=== PATIENT | male | born 1995 | race Caucasian/White ===

== ENCOUNTER 2017-01-25 04:08 | Emergency (ER) | payer MEDICAID ==
[2017-01-25] MEDS ORDERED: ALBUTEROL SULFATE 2.5 MG/3 ML VIAL.NEB IH ONE ×2 (04:34)
[2017-01-25] MEDS ORDERED: predniSONE 20 MG TABLET PO ONE (04:35)
[2017-01-25] MEDS ORDERED: ALBUTEROL SULFATE 2.5 MG/0.5 ML VIAL.NEB IH ONE (04:37)
[2017-01-25] MEDS ORDERED: predniSONE 20 MG TABLET ONE (04:41)
--- NOTE | 2017-01-25 04:42 | ERNOTE ---
Dyspnea - Date Date of Service: 01/25/17 - General Time Seen by Provider: 01/25/17 04:33 Source: patient, RN notes reviewed - Immun/Allergies/Home Medications Immunizations: IMMUNIZATION HX Immunizations Up to Date Yes Allergies/Adverse Reactions: Allergies azithromycin [From Zithromax] Allergy (Verified 01/25/17 04:20) Home Medications: HOME MEDICATIONS Albuterol Sulfate [Proventil Hfa] 6.7 gm IH QID #1 hfa.aer.ad 01/25/17 [Last Taken Unknown] predniSONE [Prednisone] See Taper PO DAILY #20 tablet 01/25/17 [Last Taken Unknown] - History of Present Illness Narrative: 21-year-old male established patient of Dr. Ross presents with increased shortness of breath and mild respiratory symptoms. Patient started having allergy symptoms and wheezing tonight where he could hardly breath. He took about 75 mg benadryl and prednisone 10mg around 3am. He had been at his grandmother a few days ago tearing out carpet that was moldy and had dog feces in it. Date (Duration): 01/24/17 Severity: moderate Treatment [employer]: by patient, other - prednisone and Benadryl Initiating event: Reports: exposure to mold, other - exposure to animal feces and dust Frequency of episodes: Reports: other - single episode Modifying Factors - (Improves): Reports: nothing Modifying Factors (Worsens): Reports: lying down, other - came to ER because of inability to lay down without significant worsening wheezing. Associated Symptoms-Dyspnea: Reports: cough, wheezing. Denies: fever/chills, chest pain/discomfort, palpitations Prior Treatment: Reports: other - did some old prednisone and Benadryl Review of Systems - Review of Systems Constitutional: Present: no symptoms reported EYE: Present: no symptoms reported ENT: Present: no symptoms reported Respiratory: Present: See HPI, wheezing Cardiology: Present: no symptoms reported Gastrointestinal/Abdominal: Present: no symptoms reported Genitourinary: Present: no symptoms reported Musculoskeletal: Present: no symptoms reported Skin: Present: no symptoms reported Neurological: Present: no symptoms reported Endocrine: Present: no symptoms reported All Other Systems: All systems neg except as marked - Narrative Narrative: Past medical history past surgical history family history medical history allergies all reviewed and as below. - Patient's Past Medical History Patient History - Medical: No pertinent hx Patient History - Cardiac/Respiratory: Asthma Patient History - Cancer: No Hx of Cancer Patient History - Surgical Procedures: No surgical history Patient History - Other: None - Social History Living Situations: significant other Abuse History: No History of abuse Psych History: No pertinent hx Smoking Status: Current every day smoker Have you smoked in the past 12 months: Yes Alcohol Use: none Drug Use: none - Immunizations Immunizations Up to Date: Yes Physical Exam - Physical Exam General Appearance: Present: wd/wn, alert, no apparent distress Head Exam: Present: normal inspection, no evidence of injury Ears, Nose, Throat: Present: normal ENT inspection, normal pharynx Neck: Present: normal inspection, nontender Respiratory: Present: respiratory distress, decreased breath sounds, wheezing. Absent: accessory muscle use Cardiovascular/Chest: Present: regular rate, rhythm, no murmur, normal peripheral pulses Peripheral Pulses: N=norm/S=strong/W=weak/B=bound/A=absent: Carotid (R): Normal , Carotid (L): Normal Gastrointestinal/Abdominal: Present: normal bowel sounds, nontender, soft Rectal Exam: Present: deferred Male Genitals Exam: Present: deferred Extremity Exam: Present: normal inspection, non-tender, normal range of motion, no edema Neurological Exam: Present: alert, oriented, normal mood/affect, no motor/ sensory deficits Skin Exam: Present: normal color, warm/dry ED Progress - Vital Signs Patient's Vital Signs:: I have reviewed the patient's vital signs. Vital Signs: Vital Signs 01/25/17 01/25/17 04:13 04:39 Temperature 36.6 C Pulse Rate 60 70 Respiratory 18 18 Rate Blood Pressure 132/73 O2 Sat by Pulse 99 96 Oximetry - Progress/Reassessment Chief Complaint: Dyspnea Progress:: Improved - after respiratory treatment. Plan - Plan Plan: Patient stable for discharge. 0600 am Departure Clinical Impression: Asthmatic breathing - Departure Disposition: Home self-care Condition: Good Instructions: Bronchospasm, Adult Additional Instructions: use ventilation to help when exposed to allergens Referrals: Gerard Ross MD [Primary Care Provider] - Prescriptions: Albuterol Sulfate [Proventil Hfa] 6.7 gm IH QID #1 hfa.aer.ad predniSONE [Prednisone] See Taper PO DAILY #20 tablet
[2017-01-25 05:44] VITALS: BP 124/70
== END 2017-01-25 06:10 | disposition home or self-care (01) ==
LOC: ER 04:08
DX: J45.901 Unspecified asthma with (acute) exacerbation (principal); F17.210 Nicotine dependence, cigarettes, uncomplicated